=== PATIENT | female | born 1950 | race Caucasian/White ===

== ENCOUNTER 2019-04-22 14:10 | Inpatient (IN) | payer MEDICARE, MEDICAID ==
[~2019-04-22] VITALS: Ht 152.4 cm; Wt 64.7 kg
[~2019-04-22 14:10] MED LIST: FERR200T3 PO; LEVO500T21 PO; LORA0.5T12 PO; MORP1TAB12 PO; OXY5T PO
[2019-04-22 20:52] LABS: Basophils # (auto) 0 uL; Basophils % (auto) 0.2 % (0.0-2.0); Eosinophils # (auto) 0 uL; Eosinophils % (auto) 0.6 % (0.0-7.0); Lymphocytes # (auto) 0.5 uL; Lymphocytes % (auto) 6.6 % (10.0-50.0); Mean Corpuscular Hgb Conc. 33.4 g/dL (32.0-36.0); Mean Corpuscular Volume 95.7 fL (80.0-100.0); Monocytes # (auto) 0.5 uL; Monocytes % (auto) 6.7 % (0.0-12.0); Neutrophils # (auto) 6.7 uL; Neutrophils % (auto) 85.9 % (37.0-80.0); Platelet Count (auto) 315 10^3/uL (140-450); Red Blood Cells 2.82 10^6/uL (4.0-5.20); Red Cell Distribution Width 19.4 % (11.8-14.3); White Blood Cell 7.8 10^3/uL (4.4-10.8)
[2019-04-22 21:10] LABS: Albumin 2.4 g/dL (3.4-5.0); BUN/Creatinine Ratio 10.9; Calcium 8.1 mg/dL (8.5-10.1); Potassium 3.3 mmol/L (3.5-5.1)
[2019-04-22 21:13] LABS: Bilirubin, Total 0.5 mg/dL (0.2-1.0); INR 1.01 (0.9-1.15); Partial Thromboplastin Time 27.3 sec (23.64-32.05); Total Protein 6.1 g/dL (6.4-8.2)
[2019-04-22 22:47] LABS: Urine Bacteria FEW /hpf (None Seen); Urine Blood 1+ /uL (Negative); Urine WBC 24 /hpf (0 - 5)
[2019-04-23] MEDS ORDERED: POTASSIUM CHL 20 Meq TABLET PO ONE ×2 (03:00→10:30)
[2019-04-23] MEDS ORDERED: ACETAMINOPHEN 500 MG TAB PO PRN (05:15)
[2019-04-23] MEDS ORDERED: MORPHINE SULF INJ 2 MG/ML SYRINGE 1ML IV PRN (05:15)
[2019-04-23] MEDS ORDERED: DOCUSATE SOD 100 MG CAP PO PRN (05:15)
[2019-04-23] MEDS ORDERED: NITROGLYCERIN 0.4 MG SL TAB SL PRN (05:15)
[2019-04-23] MEDS ORDERED: ONDANSETRON HCL 4 MG/2 ML VIAL IV PRN (05:15)
[2019-04-23] MEDS ORDERED: HYDROcodone-ACET 5/325MG TAB PO ONE (05:15)
[2019-04-23] MEDS ORDERED: DEXTROSE (50%) 50ML SYRG IV PRN (05:15)
[2019-04-23] MEDS ORDERED: FUROSEMIDE 20 MG/2 ML VIAL IV ONE (05:15)
[2019-04-23] MEDS ORDERED: CLINDAMYCIN 300MG IV 50 ML IV SCH (06:00)
[2019-04-23] MEDS: ACCU-CHEK COMFORT CURVE STRIP VI SCH ×4 (06:48→21:33)
[2019-04-23] MEDS ORDERED: MORPHINE SULF 15mg ER tab PO PRN (08:15)
[2019-04-23] MEDS: InsuLIN REG 1unit/0.01ml Soln (100units/ml) SC SCH ×4 (08:15→21:33)
[2019-04-23 09:00] VITALS: BP 121/74
--- NOTE | 2019-04-23 09:00 | NUR ---
[facility] admit from ER [facility],KEMAL admitted to [facility]. Patient oriented to Lizzeth Palmer, primary RN, unit, room, bed, and unit policies regarding patient care and visiting hours. Patient is awake, alert and oriented X4. No signs or symptoms of SOB, discomfort or pain. Right upper chest wall carol cath accessed in ER, patent with positive blood return, saline locked. Right nephrostomy tube draining clear, yellow urine to gravity. Patient weighed by bedscale and encouraged to call if they need something. All questions and concerns addressed, patient verbalized understanding.
[2019-04-23] MEDS: FERROUS SULFATE DRIED PO SCH ×2 (10:00→10:27)
[2019-04-23] MEDS ORDERED: ENOXAPARIN SOD 40 MG/0.4 ML SYRINGE SC SCH (10:00)
--- NOTE | 2019-04-23 10:18 | NUR ---
ROUNDS Dr. Chan at bedside for rounds, new orders received and followed through. Patient updated on plan of care, verbalized understanding.
[2019-04-23] MEDS: FLORASTOR (S. BOULARDII) 250 MG CAP PO SCH (10:27)
[2019-04-23] MEDS: FAMOTIDINE 20 MG TAB PO SCH (10:27)
[2019-04-23] MEDS ORDERED: FUROSEMIDE 40 MG/4 ML VIAL IV ONE (10:30)
[2019-04-23] MEDS: OXYCODONE HCL 5MG TAB PO PRN ×2 (12:07→18:10)
[2019-04-23 17:37] VITALS: BP 106/65
--- NOTE | 2019-04-23 19:15 | NUR ---
Care endorsed to ABDULAZIZ Elliott, night nurse.
--- NOTE | 2019-04-23 19:20 | NUR ---
Opening Shift Note Assumed care of patient, awake and alert. No S/S of distress/SOB or pain. Instructed on POC and to call for assist PRN. Bed in lowest locked position, call light within reach, side rails up x2. Will continue to monitor for changes Q1hr and PRN.
[2019-04-23 21:33] VITALS: BP 114/65
[2019-04-24] MEDS: OXYCODONE HCL 5MG TAB PO PRN ×3 (00:19→12:22)
[2019-04-24 04:36] VITALS: BP 108/56
[2019-04-24] MEDS: ACCU-CHEK COMFORT CURVE STRIP VI SCH ×2 (06:39→11:02)
[2019-04-24] MEDS: InsuLIN REG 1unit/0.01ml Soln (100units/ml) SC SCH ×2 (06:40→11:30)
[2019-04-24 06:58] LABS: Potassium 4.2 mmol/L (3.5-5.1)
[2019-04-24 07:03] LABS: BUN/Creatinine Ratio 11.6; Calcium 8.4 mg/dL (8.5-10.1); Magnesium 1.5 mg/dL (1.6-2.6)
--- NOTE | 2019-04-24 07:20 | NUR ---
Opening Shift Note Assumed care of patient, awake and alert. Patient sitting up in bed. No S/S of distress/SOB or pain. Bed in lowest locked position, side rails up x2, call light within reach. Patient instructed on POC and to call for assist PRN, will continue to monitor for changes Q1hr and PRN.
[2019-04-24 09:00] VITALS: BP 124/64
[2019-04-24] MEDS: FERROUS SULFATE DRIED PO SCH (10:00)
[2019-04-24] MEDS ORDERED: FUROSEMIDE 40 MG/4 ML VIAL IV SCH (10:00)
[2019-04-24] MEDS ORDERED: POTASSIUM CHL 20 Meq TABLET PO SCH (10:00)
[2019-04-24] MEDS: FAMOTIDINE 20 MG TAB PO SCH (10:18)
[2019-04-24] MEDS: FLORASTOR (S. BOULARDII) 250 MG CAP PO SCH (10:18)
[2019-04-24] MEDS: MAGNESIUM SULFATE 1GM/100ML 100 ML IV SCH ×2 (10:27→12:22)
--- NOTE | 2019-04-24 10:30 | NUR ---
ROUNDS Dr Chan at bedside for rounds, new orders received and followed through. Patient updated on plan of care, verbalized understanding.
[2019-04-24 13:00] VITALS: BP 111/68
--- NOTE | 2019-04-24 13:44 | NUR ---
Faxed requested documents to [facility] Spoke with Maureen. Awaiting confirmation and date of start. Patient updated and verbalized understanding.
--- NOTE | 2019-04-24 14:05 | NUR ---
assessment Patient will need a resumption order for [facility] on discharge. Addendum: 04/24/19 at 1605 by Melissa JANE Amended: Links added.
[2019-04-24 14:44] VITALS: BP 124/64
--- NOTE | 2019-04-24 15:50 | NUR ---
Per [facility]UC[facility] consult for Home Health to resume service with [facility] Ph: ( [phone]) Fax: ) faxed medical records. Per Sarah from [facility] they will resume service for pt within 48hrs upon d/c plan. Informed ABDULAZIZ Moreau. Addendum: 04/24/19 at 1600 by ENMA BROWN Amended: Links added.
--- NOTE | 2019-04-24 15:52 | NUR ---
Discharge instructions given as ordered. Encourage to follow up with PMD as instructed. All questions and concerns addressed. Patient verbalized understanding. Right upper chest wall flushed with Heparin flush and Hamilton needle removed, intact. Patient taken to vehicle via wheelchair with all personal belongings, accompanied by staff and family member. No distress noted at time of departure.
== END 2019-04-24 16:00 | disposition home health service (06) | DRG 291 ==
LOC: ER 14:13 → TELE 14:14 → CENTRAL 04-23 08:35
PROVIDERS: ADMIT Nurse Practitioner Acute Care; ATTEND Internal Medicine
DX: I13.0 Hypertensive heart and chronic kidney disease with heart failure and stage 1 through stage 4 chronic kidney disease, or unspecified chronic kidney disease (principal); I50.31 Acute diastolic (congestive) heart failure; E44.0 Moderate protein-calorie malnutrition; E11.65 Type 2 diabetes mellitus with hyperglycemia; E87.6 Hypokalemia; C55 Malignant neoplasm of uterus, part unspecified; E11.22 Type 2 diabetes mellitus with diabetic chronic kidney disease; N18.3 Chronic kidney disease, stage 3 (moderate); D64.9 Anemia, unspecified; N13.9 Obstructive and reflux uropathy, unspecified; K80.20 Calculus of gallbladder without cholecystitis without obstruction; E27.9 Disorder of adrenal gland, unspecified; K80.80 Other cholelithiasis without obstruction; Z68.27 Body mass index [BMI] 27.0-27.9, adult; Z85.42 Personal history of malignant neoplasm of other parts of uterus; Z92.21 Personal history of antineoplastic chemotherapy; Z93.6 Other artificial openings of urinary tract status; Z88.6 Allergy status to analgesic agent; Z79.4 Long term (current) use of insulin; Z88.8 Allergy status to other drugs, medicaments and biological substances; Z90.710 Acquired absence of both cervix and uterus; Z79.899 Other long term (current) drug therapy
CPT/HCPCS: 36415; 73700; 74176; 80048; 80053; 81001; 82150; 82962; 83690; 83735; 85025; 85379; 85610; 85730; 87081; 93970; 94761; 96365; 96375; G0378; J1642; J1815; J2405; J3490

== ENCOUNTER 2023-07-26 10:18 | Inpatient (IN) | payer MEDICARE, MEDICAID ==
[~2023-07-26] VITALS: Ht 152.4 cm; Wt 79.2 kg
[~2023-07-26 10:18] MED LIST changes: -LEVO500T21 PO; +LEVO500T31 PO; +LORA-1121 PO; -LORA0.5T12 PO
[2023-07-26] MEDS ORDERED: SODIUM CHLORIDE 0.9% 1,000 ML IV ONE ×2 (11:15→16:45)
[2023-07-26] MEDS ORDERED: ACETAMINOPHEN 500 MG TAB PO ONE (11:15)
[2023-07-26] MEDS ORDERED: ONDANSETRON HCL 4 MG/2 ML VIAL IV ONE (11:15)
[2023-07-26] MEDS: HYDROmorphone HCL 2 MG/ML VL/or syr IV ONE ×2 (11:15→14:23)
[2023-07-26] MEDS ORDERED: HYDROmorphone HCL 2 MG/ML VL/or syr IV ONE ×2 (11:15→16:45)
[2023-07-26 11:26] VITALS: PULSE 86; RESP 21; O2SAT 95
[2023-07-26 11:47] LABS: Hemoglobin 13.6 g/dL (12.2-16.2); Mean Corpuscular Hemoglobin 30.8 pg (28.0-32.0); Mean Corpuscular Hgb Conc. 32.3 g/dL (32.0-36.0); Mean Corpuscular Volume 95.1 fL (80.0-100.0); Red Blood Cells 4.41 10^6/uL (4.0-5.20); Red Cell Distribution Width 14.6 % (11.8-14.3); White Blood Cell 15.1 10^3/uL (4.4-10.8)
[2023-07-26 11:58] LABS: Band Neutrophils % (manual) 0; Basophils % (manual) 0 (0.0-2.0); Blast Cells 0; Eosinophils % (manual) 0 (0-7); Metamyelocytes % 0; Myelocytes % 0; Promyelocytes % 0; Reactive Lymphocytes 0
[2023-07-26 12:03] LABS: INR 0.98 (0.9-1.15); Partial Thromboplastin Time 27.4 SEC (24.5-34.5); Prothrombin Time 10.3 sec (9.3-11.8)
[2023-07-26 12:27] LABS: Alanine Aminotransferase 17 U/L (7-40); Albumin 4.8 g/dL (3.2-4.8); Alkaline Phosphatase 87 U/L (46-116); Anion Gap 11 (5-15); Aspartate Aminotransferase 15 U/L (13-40); BUN/Creatinine Ratio 16.1 (10.0-20.0); Bilirubin, Total 1.3 mg/dL (0.2-1.0); Blood Urea Nitrogen 27 mg/dL (9-23); Calcium 9.7 mg/dL (8.7-10.4); Carbon Dioxide 21 mmol/L (20-30); Chloride 101 mmol/L (98-107); Glucose 180 mg/dL (74-106); Magnesium 2.1 mg/dL (1.6-2.6); Potassium 4.3 mmol/L (3.5-5.1); Sodium 133 mmol/L (136-145); Total Protein 7.9 g/dL (5.7-8.2)
[2023-07-26 13:02] LABS: Lymphocytes % (manual) 2 (10.0-50.0); Monocytes % (manual) 3 (0-12); Platelet Estimate Adequate
[2023-07-26 14:06] LABS: Urine Bacteria FEW /hpf (None Seen); Urine Blood Negative /uL (Negative); Urine Clarity HAZY (Clear); Urine Color Yellow (Yellow); Urine Mucus FEW (None Seen); Urine Protein, UAD 1+ (Negative); Urine Specific Gravity 1.023 (1.001-1.035); Urine Urobilinogen Normal (Negative); Urine WBC 11 /hpf (0 - 5); Urine pH 5.5 (5.0-8.0)
[2023-07-26] MEDS ORDERED: IPRATROPIUM BROM 0.5 MG/2.5ML INH SOL NEB PRN (16:45)
[2023-07-26] MEDS ORDERED: ACETAMINOPHEN 325 MG TAB PO PRN (16:45)
[2023-07-26] MEDS ORDERED: ALBUTEROL MEDNEB 2.5 mg/3ml NEB NEB PRN (16:45)
[2023-07-26] MEDS ORDERED: cefTRIAXone 1GM/50ML D5W 50 ML IV ONE (16:45)
[2023-07-26] MEDS ORDERED: DOCUSATE SOD 100 MG CAP PO PRN (16:45)
[2023-07-26] MEDS ORDERED: TRAZ-227 PO (16:53)
[2023-07-26] MEDS ORDERED: CAL025T PO (16:53)
[2023-07-26] MEDS ORDERED: DAPA1TAB4 PO (16:53)
[2023-07-26] MEDS ORDERED: FINE10TA PO (16:53)
[2023-07-26] MEDS ORDERED: CALC1CAP31 PO (16:53)
[2023-07-26] MEDS ORDERED: CALC0.25 PO (16:53)
[2023-07-26] MEDS ORDERED: DEXTROSE (50%) 50ML SYRG IV PRN (17:15)
[2023-07-26] MEDS ORDERED: hydrALAZINE HCL 20 MG/ML VL IV PRN (17:15)
[2023-07-26] MEDS ORDERED: AZITHROMYCIN 500MG/ 250ML 250 ML IV ONE (18:00)
[2023-07-26 19:20] LABS: COVID19 ANTIGEN SOFIA FIA NEGATIVE (NEGATIVE)
[2023-07-26 20:00] VITALS: BP 130/69; PULSE 102; RESP 20; TEMP 97.6; O2SAT 95
[2023-07-26] MEDS: HYDROmorphone HCL 2 MG/ML VL/or syr IV PRN (20:42)
[2023-07-26 20:50] VITALS: O2SAT 91
[2023-07-26] MEDS: ACCU-CHEK COMFORT CURVE STRIP VI SCH (21:32)
[2023-07-26] MEDS: InsuLIN REG 1unit/0.01ml Soln (100units/ml) SC SCH (21:33)
[2023-07-26] MEDS: traZODone HCL 50 MG TAB PO SCH (21:34)
[2023-07-26 21:49] VITALS: BP 130/57; PULSE 95; RESP 18; O2SAT 91
[2023-07-26 21:56] VITALS: BP 130/69; PULSE 102; RESP 20; TEMP 97.6; O2SAT 95
[2023-07-27] MEDS: HYDROcodone-ACET 5/325MG TAB PO PRN ×2 (02:26→10:29)
[2023-07-27] MEDS: ONDANSETRON HCL 4 MG/2 ML VIAL IV PRN (02:33)
[2023-07-27 05:00] VITALS: BP 134/65; PULSE 100; RESP 18; TEMP 98.7; O2SAT 100
[2023-07-27 05:37] LABS: Basophils # (auto) 0 10 ^3/uL (0-0.2); Basophils % (auto) 0.1 % (0.0-2.0); Eosinophils # (auto) 0 10 ^3/uL (0-0.8); Hematocrit 40.1 % (36.0-46.0); Hemoglobin 12.5 g/dL (12.2-16.2); Lymphocytes # (auto) 0.3 10 ^3/uL (0.4-5.4); Lymphocytes % (auto) 1.7 % (10.0-50.0); Mean Corpuscular Hemoglobin 30.9 pg (28.0-32.0); Mean Corpuscular Hgb Conc. 31.1 g/dL (32.0-36.0); Mean Corpuscular Volume 99.4 fL (80.0-100.0); Monocytes # (auto) 0.9 10 ^3/uL (0-1.3); Monocytes % (auto) 4.9 % (0.0-12.0); Neutrophils # (auto) 16.8 10 ^3/uL (1.6-8.6); Neutrophils % (auto) 93.3 % (37.0-80.0); Red Blood Cells 4.03 10^6/uL (4.0-5.20); Red Cell Distribution Width 15.4 % (11.8-14.3)
[2023-07-27 05:56] LABS: Alanine Aminotransferase 11 U/L (7-40); Alkaline Phosphatase 93 U/L (46-116); Calcium 9.1 mg/dL (8.7-10.4); Chloride 102 mmol/L (98-107)
[2023-07-27 05:57] LABS: Albumin 4.2 g/dL (3.2-4.8); Anion Gap 17 (5-15); Aspartate Aminotransferase 11 U/L (13-40); BUN/Creatinine Ratio 13.2 (10.0-20.0); Bilirubin, Total 1.1 mg/dL (0.2-1.0); Blood Urea Nitrogen 25 mg/dL (9-23); Carbon Dioxide 16 mmol/L (20-30); Glucose 150 mg/dL (74-106); Potassium 4.5 mmol/L (3.5-5.1); Sodium 135 mmol/L (136-145); Total Protein 6.9 g/dL (5.7-8.2)
[2023-07-27] MEDS: ACCU-CHEK COMFORT CURVE STRIP VI SCH ×4 (06:50→21:59)
[2023-07-27] MEDS: InsuLIN REG 1unit/0.01ml Soln (100units/ml) SC SCH ×4 (06:50→22:02)
[2023-07-27 09:00] VITALS: BP 129/74; PULSE 93; RESP 22; TEMP 98.3; O2SAT 92; O2SAT 94
[2023-07-27] MEDS ORDERED: CALCITRIOL 0.25 MCG CAP PO SCH (10:00)
[2023-07-27] MEDS ORDERED: CALCIFEDIOL 30 MCG PO SCH (10:00)
[2023-07-27] MEDS ORDERED: FINERENONE 10 MG PO SCH (10:00)
[2023-07-27] MEDS: ENOXAPARIN SOD 30 MG/0.3 ML SYRINGE SC SCH (10:30)
[2023-07-27] MEDS: cefTRIAXone 1GM/50ML D5W 50 ML IV SCH (10:31)
[2023-07-27] MEDS ORDERED: VANCOMYCIN PER PHARMACY 0 MG IV SCH (11:30)
[2023-07-27] MEDS: AZITHROMYCIN 500MG/ 250ML 250 ML IV SCH (11:40)
[2023-07-27] MEDS ORDERED: VANCOMYCIN 1GM/250ML 250 ML IV ONE (11:45)
[2023-07-27] MEDS ORDERED: CYCLOBENZAPRINE HCL 10 MG TAB PO ONE (11:45)
[2023-07-27 12:45] VITALS: BP 126/70; PULSE 97; RESP 20; TEMP 97.1; O2SAT 96
[2023-07-27 16:45] VITALS: BP 130/76; PULSE 99; RESP 93; TEMP 97.4; O2SAT 93
[2023-07-27] MEDS ORDERED: CYCLOBENZAPRINE HCL 10 MG TAB PO PRN (18:30)
[2023-07-27 19:53] VITALS: PULSE 93; RESP 20; O2SAT 94
[2023-07-27] MEDS: traZODone HCL 50 MG TAB PO SCH (21:52)
[2023-07-27 22:27] LABS: Urine Bacteria NONE SEEN /hpf (None Seen); Urine Blood Negative /uL (Negative); Urine Clarity HAZY (Clear); Urine Color Colorless (Yellow); Urine Protein, UAD 1+ (Negative); Urine Specific Gravity 1.019 (1.001-1.035); Urine Urobilinogen Normal (Negative); Urine WBC 7 /hpf (0 - 5)
[2023-07-27 23:18] VITALS: BP 139/73; PULSE 101; RESP 20; TEMP 98.2; O2SAT 92
[2023-07-28] VITALS (7 sets, daily range): BP systolic 121–145; BP diastolic 64–71; PULSE 66–101; RESP 16–20; TEMP 97.9–98.4; O2SAT 90–94
[2023-07-28] MEDS: HYDROmorphone HCL 2 MG/ML VL/or syr IV PRN ×2 (00:33→06:47)
[2023-07-28] MEDS: ONDANSETRON HCL 4 MG/2 ML VIAL IV PRN (00:33)
[2023-07-28] MEDS: ACCU-CHEK COMFORT CURVE STRIP VI SCH (06:47)
[2023-07-28] MEDS: InsuLIN REG 1unit/0.01ml Soln (100units/ml) SC SCH (06:49)
[2023-07-28 06:58] LABS: Basophils # (auto) 0 10 ^3/uL (0-0.2); Basophils % (auto) 0.1 % (0.0-2.0); Eosinophils # (auto) 0 10 ^3/uL (0-0.8); Eosinophils % (auto) 0.2 % (0.0-7.0); Hematocrit 38.3 % (36.0-46.0); Hemoglobin 12.3 g/dL (12.2-16.2); Lymphocytes # (auto) 0.5 10 ^3/uL (0.4-5.4); Lymphocytes % (auto) 3.7 % (10.0-50.0); Mean Corpuscular Hemoglobin 30.6 pg (28.0-32.0); Mean Corpuscular Hgb Conc. 32.1 g/dL (32.0-36.0); Mean Corpuscular Volume 95.3 fL (80.0-100.0); Monocytes # (auto) 0.8 10 ^3/uL (0-1.3); Monocytes % (auto) 5.2 % (0.0-12.0); Neutrophils # (auto) 13.2 10 ^3/uL (1.6-8.6); Neutrophils % (auto) 90.8 % (37.0-80.0); Red Blood Cells 4.02 10^6/uL (4.0-5.20); Red Cell Distribution Width 14.8 % (11.8-14.3); White Blood Cell 14.5 10^3/uL (4.4-10.8)
[2023-07-28 07:18] LABS: Albumin 3.8 g/dL (3.2-4.8); Alkaline Phosphatase 87 U/L (46-116); Anion Gap 11 (5-15); Aspartate Aminotransferase 10 U/L (13-40); BUN/Creatinine Ratio 12.6 (10.0-20.0); Bilirubin, Total 0.5 mg/dL (0.2-1.0); Blood Urea Nitrogen 21 mg/dL (9-23); Carbon Dioxide 20 mmol/L (20-30); Chloride 103 mmol/L (98-107); Glucose 152 mg/dL (74-106); Potassium 3.8 mmol/L (3.5-5.1); Sodium 134 mmol/L (136-145)
[2023-07-28 07:20] LABS: Total Protein 6.4 g/dL (5.7-8.2)
[2023-07-28 07:21] LABS: Alanine Aminotransferase < 9 U/L (7-40)
[2023-07-28] MEDS: ENOXAPARIN SOD 30 MG/0.3 ML SYRINGE SC SCH (09:14)
[2023-07-28] MEDS: VANCOMYCIN 1GM/250ML 250 ML IV SCH (09:14)
[2023-07-28] MEDS: AZITHROMYCIN 500MG/ 250ML 250 ML IV SCH (09:16)
[2023-07-28] MEDS ORDERED: ONDANSETRON HCL 4 MG/2 ML VIAL IV ONE (11:30)
[2023-07-28] MEDS: cefTRIAXone 1GM/50ML D5W 50 ML IV SCH (13:44)
[2023-07-28] MEDS: HYDROcodone-ACET 7.5/325MG TAB PO PRN ×2 (13:48→21:02)
[2023-07-28] MEDS: LACTULOSE 20Gm/30ML SOLN PO SCH ×2 (16:08→18:00)
[2023-07-28] MEDS: traZODone HCL 50 MG TAB PO SCH (21:02)
[2023-07-29] VITALS (7 sets, daily range): BP systolic 130–152; BP diastolic 62–79; PULSE 83–94; RESP 17–18; TEMP 97.5–98.5; O2SAT 91–95
[2023-07-29] MEDS: LACTULOSE 20Gm/30ML SOLN PO SCH ×2 (00:49→06:00)
[2023-07-29] MEDS: VANCOMYCIN 1GM/250ML 250 ML IV SCH ×2 (02:49→20:16)
[2023-07-29] MEDS: HYDROcodone-ACET 7.5/325MG TAB PO PRN ×3 (04:17→20:40)
[2023-07-29 05:45] LABS: Hematocrit 42.4 % (36.0-46.0); Hemoglobin 13.8 g/dL (12.2-16.2); Mean Corpuscular Hgb Conc. 32.5 g/dL (32.0-36.0); Mean Corpuscular Volume 95.5 fL (80.0-100.0); Red Blood Cells 4.44 10^6/uL (4.0-5.20); Red Cell Distribution Width 14.4 % (11.8-14.3); White Blood Cell 12.6 10^3/uL (4.4-10.8)
[2023-07-29 05:51] LABS: Chloride 103 mmol/L (98-107); Potassium 3.6 mmol/L (3.5-5.1); Sodium 137 mmol/L (136-145)
[2023-07-29 05:52] LABS: Anion Gap 12 (5-15); Calcium 9.2 mg/dL (8.5-10.1); Carbon Dioxide 22 mmol/L (20-30)
[2023-07-29 05:57] LABS: BUN/Creatinine Ratio 18.9 (10.0-20.0); Blood Urea Nitrogen 27 mg/dL (9-23); Glucose 186 mg/dL (74-106)
[2023-07-29 06:06] LABS: Basophils % (manual) 0 (0.0-2.0); Blast Cells 0; Eosinophils % (manual) 0 (0-7); Myelocytes % 0; Reactive Lymphocytes 0
[2023-07-29 09:05] LABS: Band Neutrophils % (manual) 1; Lymphocytes % (manual) 8 (10.0-50.0); Metamyelocytes % 1; Monocytes % (manual) 1 (0-12); Promyelocytes % 4
[2023-07-29 09:06] LABS: Platelet Estimate Adequate; Toxic Granulation Slight
[2023-07-29] MEDS: cefTRIAXone 1GM/50ML D5W 50 ML IV SCH (09:44)
[2023-07-29] MEDS: ENOXAPARIN SOD 30 MG/0.3 ML SYRINGE SC SCH (09:44)
[2023-07-29] MEDS ORDERED: LACTULOSE 20Gm/30ML SOLN PO PRN (10:45)
[2023-07-29] MEDS: DOXYCYCLINE 100MG/250ML 250 ML IV SCH ×2 (12:23→21:27)
[2023-07-29] MEDS: traZODone HCL 50 MG TAB PO SCH (21:27)
[2023-07-30] MEDS: HYDROcodone-ACET 7.5/325MG TAB PO PRN ×2 (04:56→10:45)
[2023-07-30 05:00] VITALS: BP 150/78; PULSE 89; RESP 16; TEMP 98.3; O2SAT 93
[2023-07-30 07:00] LABS: Hematocrit 38.8 % (36.0-46.0); Hemoglobin 12.6 g/dL (12.2-16.2); Mean Corpuscular Hemoglobin 30.9 pg (28.0-32.0); Mean Corpuscular Hgb Conc. 32.4 g/dL (32.0-36.0); Mean Corpuscular Volume 95.5 fL (80.0-100.0); Red Blood Cells 4.07 10^6/uL (4.0-5.20); Red Cell Distribution Width 14.3 % (11.8-14.3); White Blood Cell 8.2 10^3/uL (4.4-10.8)
[2023-07-30 07:19] LABS: Band Neutrophils % (manual) 0; Basophils % (manual) 0 (0.0-2.0); Blast Cells 0; Promyelocytes % 0; Reactive Lymphocytes 0
[2023-07-30] MEDS: cefTRIAXone 1GM/50ML D5W 50 ML IV SCH (08:27)
[2023-07-30 08:37] LABS: Eosinophils % (manual) 1 (0-7); Lymphocytes % (manual) 7 (10.0-50.0); Metamyelocytes % 1; Monocytes % (manual) 7 (0-12); Myelocytes % 3; Platelet Estimate Adequate
[2023-07-30 09:00] VITALS: BP 152/73; PULSE 82; RESP 16; TEMP 97.6; O2SAT 94
[2023-07-30] MEDS ORDERED: ENOXAPARIN SOD 40 MG/0.4 ML SYRINGE SC SCH (10:00)
[2023-07-30] MEDS: DOXYCYCLINE 100MG/250ML 250 ML IV SCH (10:13)
[2023-07-30] MEDS ORDERED: LEVO250T58 PO (11:25)
[2023-07-30 13:00] VITALS: BP 147/78; PULSE 92; RESP 16; TEMP 98.1; O2SAT 95
[2023-07-30] MEDS ORDERED: VANCOMYCIN 1GM/250ML 250 ML IV SCH (21:00)
== END 2023-07-30 17:05 | disposition home or self-care (01) | DRG 603 ==
LOC: EDBD 10:18 → ER 10:18 → OVERFLOW 16:50 → CENTRAL 18:19
PROVIDERS: ADMIT Nurse Practitioner Family; ATTEND Internal Medicine Geriatric Medicine
DX: L03.115 Cellulitis of right lower limb (principal); N17.9 Acute kidney failure, unspecified; M62.838 Other muscle spasm; M54.6 Pain in thoracic spine; M48.061 Spinal stenosis, lumbar region without neurogenic claudication; G89.29 Other chronic pain; C55 Malignant neoplasm of uterus, part unspecified; E11.22 Type 2 diabetes mellitus with diabetic chronic kidney disease; E78.5 Hyperlipidemia, unspecified; I12.9 Hypertensive chronic kidney disease with stage 1 through stage 4 chronic kidney disease, or unspecified chronic kidney disease; N18.30 Chronic kidney disease, stage 3 unspecified; I89.0 Lymphedema, not elsewhere classified; K59.00 Constipation, unspecified; Z85.42 Personal history of malignant neoplasm of other parts of uterus; Z82.49 Family history of ischemic heart disease and other diseases of the circulatory system; Z88.6 Allergy status to analgesic agent; Z20.822 Contact with and (suspected) exposure to COVID-19
CPT/HCPCS: 36415; 71045; 72128; 72131; 76775; 78582; 80048; 80053; 80202; 81001; 82962; 83690; 83735; 83880; 84132; 84439; 84443; 84484; 85007; 85025; 85027; 85379; 85610; 85730; 87040; 87077; 87086; 87186; 87426; 93005; 93971; 96361; 96365; 96375; 96376; 97163; G0378; J0696; J1642; J1815; J2405; J3490